=== PATIENT | male | born 2000 ===

== ENCOUNTER 2023-06-12 12:32 | Outpatient (CLI) | payer OTHER | END 2023-06-12 23:59 | disposition short-term general hospital (02) | LOC: EMS 12:32 | DX: S89.92XA Unspecified injury of left lower leg, initial encounter (principal); X50.0XXA Overexertion from strenuous movement or load, initial encounter; Y93.89 Activity, other specified; Y92.139 Unspecified place military base as the place of occurrence of the external cause | CPT/HCPCS: A0425; A0427 ==

== ENCOUNTER 2023-06-29 10:11 | Outpatient (CLI) | payer OTHER ==
--- NOTE | 2023-06-29 19:56 | MRI Report ---
PROCEDURE: Knee LT WO INDICATIONS: KNEE INSTABILITY TECHNIQUE: Noncontrast sagittal PD fast spin echo and T2 fast spin echo with fat saturation, sagittal 3-D spoile d GE with fat saturation; coronal T1 spin echo and PD fast spin echo with fat saturation, and axial P D fast spin echo with fat saturation through the knee. COMPARISON: None. FINDINGS: Image quality: Excellent. Anterior cruciate ligament: Intact. Posterior cruciate ligament: Intact. Medial collateral ligament: Mild edema adjacent to the proximal medial collateral ligament may be se condary to overlying medial patellofemoral ligament injury or less likely a low-grade medial collate ral ligament sprain. Lateral collateral ligament: Intact. Medial meniscus: Intact. Lateral meniscus: Intact. Medial and lateral tendons: The semimembranosus tendon insertions appear intact. Visualized portion s of the pes anserinus tendons appear normal. The popliteus tendon appears intact. Iliotibial band appears normal. Anterior structures: Mild patella la. The distal quadriceps tendon is intact. 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 The tibial tubercle-trochlear groove distance is approximately 1.4 cm. There is suspected at least partia l tearing of the medial patellofemoral ligament near its femoral attachment. Bones: Osseous edema is seen at the medial aspect of the patella and the anterolateral aspect of the lateral femoral condyle, consistent with a recent episode of transient lateral patellar dislocation. There is contour abnormality at the facet of the patella that is suspicious for a possible impaction fracture. Possible minimally depressed impaction fracture of the lateral femoral condyle. Articular cartilages: No focal cartilage defect is seen. Soft tissues: There is a medium-sized joint effusion. The medial patellar plica appears mildly thick ened and extends into the medial patellofemoral joint space. There is a trace medial popliteal cyst. The musculature surrounding the knee is normal in bulk. IMPRESSION: 1.Moderate trabecular bone injuries at the medial patellar facet and the anterolateral aspect of the lateral femoral condyle with possible minimally depressed impaction fractures in both locations, cons istent with a recent episode of transient lateral patellar dislocation. 2.Congenitally shallow trochlear groove with lateral patellar tilting and mild lateral patellar sublu xation. The tibial tubercle-trochlear groove distance is within normal limits. 3.Suspected partial tearing of the medial patellofemoral ligament near the femoral attachment with keller rrounding soft tissue edema. 4.Cruciate and collateral ligaments are intact. No meniscal tear is seen. 5.Moderate joint effusion. Medial patellar plica appears mildly thickened. Reviewed by: Shahab Lake MD on 06/29/2023 7:55 PM PST Approved by: Shahab Lake MD on 06/29/2023 7:55 PM PST Station ID: [id number]
== END 2023-06-29 10:12 | disposition home or self-care (01) ==
LOC: DI 10:11
PROVIDERS: ATTEND Orthopaedic Surgery
DX: S83.005A Unspecified dislocation of left patella, initial encounter (principal); M25.461 Effusion, right knee